=== PATIENT | male | born 1955 | race Caucasian/White ===

== ENCOUNTER 2017-01-20 09:59 | Inpatient (IN) | payer BC ==
[2017-01-20] VITALS (15 sets, daily range): BP systolic 108–177; BP diastolic 69–96
[~2017-01-20] VITALS: Ht 175.3 cm; Wt 77.7 kg
[2017-01-20 10:08] LABS: HEMOGLOBIN 16.3 g/dL (14.1-18.0); LYMPH # 1.7 K/mm3 (0.7-4.5); LYMPH % 12.2 % (10-50)
[2017-01-20] MEDS ORDERED: NOMEDS XX (10:11)
--- NOTE | 2017-01-20 10:24 | Emergency Room Report ---
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 Clinical Suspician of Infection? Mental Status: Sepsis Risk: Have you (or family members/close friends) recently traveled outside the [place]? If Yes, where/when: Have you had exposure to infectious disease within the past month? TB? Other? Specify: Source patient, RN notes reviewed, family Exam Limitations no limitations Comment Pt comes to the ED with complaints of substernal chest pain that started yesterday while trying [place] clean [place] fallen [place]. He worked really hard, developed chest pain, broke out with sweat and now comes to the ED with worsening CP. EKG looks like an acute Inferior RI. STEMI alert called immediately Cardiac Chest Pain Chest pain indicative of cardiac Yes Timing/Duration 24 hours Severity/Quality severe Location substernal Chest Pain Radiation no radiation Activities at Onset strenuous activity History Medical History Surgical Hx Previous Surgery? Review of Systems All Other Systems Reviewed and Negative Constitutional see HPI Respiratory see HPI Cardiovascular see HPI Skin see HPI Physical Exam Vital Signs Vital Signs Date Time Temp Pulse Resp B/P Pulse O2 O2 Flow FiO2 Ox Delivery Rate 01/20 1000 97.7 93 18 177/96 98 General Appearance normal appearance, WD/WN, moderate distress (Chest pain ) Respiratory Status No: respiratory distress. Lung Sounds bilateral: normal breath sounds. 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 No Results/Orders Laboratory Tests 01/20/17 1005: Sodium Pending, Potassium Pending, Chloride Pending, Carbon Dioxide Pending, BUN Pending, Creatinine Pending, Estimated Creat Clear Pending, Estimated GFR (MDRD) Pending, Glucose Pending, Calcium Pending, Total Bilirubin Pending, AST Pending, ALT Pending, Alkaline Phosphatase Pending, Creatine Kinase Pending, CK-MB (CK-2) Rel Index Pending, CK and CKMB Interp Pending, Troponin I Pending, Total Protein Pending, Albumin Pending, Globulin Pending, Albumin/Globulin Ratio Pending, PT Pending, INR Pending, APTT Pending, WBC 14.0 H, RBC 5.44, Hgb 16.3, Hct 48.7, MCV 89.6, RDW 13.4, Plt Count 235, MPV 7.7, Gran % 81.3 H, Gran # 11.4 H, Lymphocytes % 12.2, Monocytes % 5.3, Eosinophils % 1.1, Basophils % 0.1, Lymphocytes # 1.7, Monocytes # 0.7, Eosinophils # 0.2, Basophils # 0.0, PUBS MCHC 33.4, MCH 29.9 Current Medication Orders Sig/Chencho Start time Last Medication Dose Route Stop Time Status Admin Aspirin 324 MG ONCE ONE 01/20 1015 DC 01/20 PO 01/20 1016 1006 Nitroglycerin 0.4 MG [id number] PRN 01/20 1015 AC 01/20 PO 1012 Sodium Chloride 10 ML PRN PRN 01/20 1015 AC IV 01/21 1003 Ticagrelor 180 MG ONCE ONE 01/20 1015 DC PO 01/20 1016 Ticagrelor 0 .STK-MED ONE 01/20 1015 DC PO Aspirin 0 .STK-MED ONE 01/20 1005 DC .ROUTE Nitroglycerin 0 .STK-MED ONE 01/20 1005 DC SL Sodium Chloride 1,000 ML .STK-MED ONE 01/20 1005 DC IV Orders Procedure Date/time Status LHC W/VENTRICLE 01/20 1013 Active ELECTROCARDIOGRAM REQUEST 01/20 1005 Active CHEST-PORTABLE 01/20 1005 Active IV SALINE LOCK 01/20 1005 Active PROTIME/PARTIAL PROTIME 01/20 1005 Active CBC WITH AUTO DIFF 01/20 1005 Complete CARDIAC ENZYMES 01/20 1005 Active CHEM 12 PROFILE 01/20 1005 Active Departure Departure Time of Disposition 1016 Disposition Still a Patient Clinical Impression Primary Impression: Acute ST elevation myocardial infarction (STEMI) Qualifiers: Involved coronary artery: other inferior wall coronary artery Qualified Code: I21.19 - ST elevation (STEMI) myocardial infarction involving other coronary artery of inferior wall Condition STABLE Referrals Sonido Haddad MD Additional Instructions STEMI alert called and the shrimp pond laborer team are on their way in...Dr. Haddad has been sent the EKG Discharge Counseling Counseled pt/family regarding diagnosis, test results, follow up needs ED Critical Care Critical Care Yes Time spent 30-74 min Vital system(s) involved: Circulatory Failure I was present at bedside for Coordinating pt's care, Interpreting EKGs/Strips , During my initial exam, Reviewing lab results, Discussing pt condition, For re -examinations If Critical Care minutes are documented, the time involved in the performance of seperately reportable procedures was not counted toward critical care time documented. I directly delivered medical care to this critically ill and/or injured patient. Timely evaluation and treatment was necessary to address the significant organ system(s) dysfunction present in this patient. at 1029
--- NOTE | 2017-01-20 10:24 | Emergency Room Report ---
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 Clinical Suspician of Infection? Mental Status: Sepsis Risk: Have you (or family members/close friends) recently traveled outside the [place]? If Yes, where/when: Have you had exposure to infectious disease within the past month? TB? Other? Specify: Source patient, RN notes reviewed, family Exam Limitations no limitations Comment Pt comes to the ED with complaints of substernal chest pain that started yesterday while trying to clean a fallen tree [place] a fence [place] his [place]. He worked really hard, developed chest pain, broke out with sweat and now comes to the ED with worsening CP. EKG looks like an acute Inferior PA. STEMI alert called immediately Cardiac Chest Pain Chest pain indicative of cardiac Yes Timing/Duration 24 hours Severity/Quality severe Location substernal Chest Pain Radiation no radiation Activities at Onset strenuous activity History Medical History Surgical Hx Previous Surgery? Review of Systems All Other Systems Reviewed and Negative Constitutional see HPI Respiratory see HPI Cardiovascular see HPI Skin see HPI Physical Exam Vital Signs Vital Signs Date Time Temp Pulse Resp B/P Pulse O2 O2 Flow FiO2 Ox Delivery Rate 01/20 1000 97.7 93 18 177/96 98 General Appearance normal appearance, WD/WN, moderate distress (Chest pain ) Respiratory Status No: respiratory distress. Lung Sounds bilateral: normal breath sounds. 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 No Results/Orders Laboratory Tests 01/20/17 1005: Sodium Pending, Potassium Pending, Chloride Pending, Carbon Dioxide Pending, BUN Pending, Creatinine Pending, Estimated Creat Clear Pending, Estimated GFR (MDRD) Pending, Glucose Pending, Calcium Pending, Total Bilirubin Pending, AST Pending, ALT Pending, Alkaline Phosphatase Pending, Creatine Kinase Pending, CK-MB (CK-2) Rel Index Pending, CK and CKMB Interp Pending, Troponin I Pending, Total Protein Pending, Albumin Pending, Globulin Pending, Albumin/Globulin Ratio Pending, PT Pending, INR Pending, APTT Pending, WBC 14.0 H, RBC 5.44, Hgb 16.3, Hct 48.7, MCV 89.6, RDW 13.4, Plt Count 235, MPV 7.7, Gran % 81.3 H, Gran # 11.4 H, Lymphocytes % 12.2, Monocytes % 5.3, Eosinophils % 1.1, Basophils % 0.1, Lymphocytes # 1.7, Monocytes # 0.7, Eosinophils # 0.2, Basophils # 0.0, PUBS MCHC 33.4, MCH 29.9 Current Medication Orders Sig/Chencho Start time Last Medication Dose Route Stop Time Status Admin Aspirin 324 MG ONCE ONE 01/20 1015 DC 01/20 PO 01/20 1016 1006 Nitroglycerin 0.4 MG [id number] PRN 01/20 1015 AC 01/20 PO 1012 Sodium Chloride 10 ML PRN PRN 01/20 1015 AC IV 01/21 1003 Ticagrelor 180 MG ONCE ONE 01/20 1015 DC PO 01/20 1016 Ticagrelor 0 .STK-MED ONE 01/20 1015 DC PO Aspirin 0 .STK-MED ONE 01/20 1005 DC .ROUTE Nitroglycerin 0 .STK-MED ONE 01/20 1005 DC SL Sodium Chloride 1,000 ML .STK-MED ONE 01/20 1005 DC IV Orders Procedure Date/time Status LHC W/VENTRICLE 01/20 1013 Active ELECTROCARDIOGRAM REQUEST 01/20 1005 Active CHEST-PORTABLE 01/20 1005 Active IV SALINE LOCK 01/20 1005 Active PROTIME/PARTIAL PROTIME 01/20 1005 Active CBC WITH AUTO DIFF 01/20 1005 Complete CARDIAC ENZYMES 01/20 1005 Active CHEM 12 PROFILE 01/20 1005 Active Departure Departure Time of Disposition 1016 Disposition Still a Patient Clinical Impression Primary Impression: Acute ST elevation myocardial infarction (STEMI) Qualifiers: Involved coronary artery: other inferior wall coronary artery Qualified Code: I21.19 - ST elevation (STEMI) myocardial infarction involving other coronary artery of inferior wall Condition STABLE Referrals Sonido Haddad MD Additional Instructions STEMI alert called and the flue dust laborer team are on their way in...Dr. Haddad has been sent the EKG Discharge Counseling Counseled pt/family regarding diagnosis, test results, follow up needs ED Critical Care Critical Care Yes Time spent 30-74 min Vital system(s) involved: Circulatory Failure I was present at bedside for Coordinating pt's care, Interpreting EKGs/Strips , During my initial exam, Reviewing lab results, Discussing pt condition, For re -examinations If Critical Care minutes are documented, the time involved in the performance of seperately reportable procedures was not counted toward critical care time documented. I directly delivered medical care to this critically ill and/or injured patient. Timely evaluation and treatment was necessary to address the significant organ system(s) dysfunction present in this patient. at 1028
--- NOTE | 2017-01-20 11:37 | RADIOLOGY REPORT PS360 ---
CARDIAC CATHETERIZATION DATE OF CATHETERIZATION:01/20/2017 11:21 AM PROCEDURES: 1. Left heart catheterization 2. Selective coronary angiogram 3. Left ventriculogram 4. Drug-eluting stent deployment to the proximal mid right coronary artery INDICATION FOR TEST: 1. Acute inferior ST elevation myocardial infarction 2. Coronary artery disease Informed consent was obtained prior to the procedure. COMPLICATIONS: None ESTIMATED BLOOD LOSS: Less than 10 ml. TECHNIQUE: One percent lidocaine was used to anesthetize the right anterior aspect of the right wrist. The right radial artery was accessed via the central technique and a 6 American hydrophilic sheath was placed in the right radial artery. 8000 units of heparin along with verapamil and nitroglycerin were administered intra-arterially. An [employer] left 3.5 guide catheter was placed in the ascending aorta. When attached to the pressure transducer the catheter was in the left ventricle. Left ventriculogram and left heart catheterization was then subsequently performed using this catheter. Following this the guide catheter was pulled back and used to intubate the left main artery. Angiography was performed. Following this the catheter was then placed into the right coronary artery and angiography followed. An ACT was measured out of range. A choice PT wire was pushed through the acute occlusion. Patient was actively having burning chest pain and pressure with severe discomfort. A 2 mm x 15 mm balloon was taken at 20 jeromy to predilate the stenosis. Following this a 2.5 x 22 mm resolute stent was deployed at 20 jeromy in the proximal right coronary artery. 800 mcg of intracoronary nitroglycerin was administered there by restoring LITZY-3 flow and patient had complete alleviation of his chest pain. Following this a 3 mm x 30 mm resolute stent was deployed at 20 jeromy in the mid right coronary artery overlapping the first stent. This same balloon was brought back and used to post dilate the 2.5 mm stent and taken to 22 jeromy creating an intraluminal diameter in excess of 3.55 mm. An additional 800 mcg of intracoronary nitroglycerin was given. LITZY 0 flow had improved from the beginning of the case up to LITZY-3 flow at the end of the case. Patient immediately described complete alleviation of all chest pain and indicated he felt significantly better and actually normal. No residual chest pain was present after revascularization which was a significant improvement from his severe chest pain and mild diaphoresis prior to the procedure. Following this the apparatus was removed good hemostasis was achieved using TR band in patient was transferred to the postop holding area in stable condition ANGIOGRAPHIC RESULTS: 1. The left main artery has an ostial 20% stenosis 2. The left anterior descending artery immediately after the first diagonal artery yet proximal to the first septal vp treasurer the LAD has a hazy 70% stenosis followed by sequential 70% stenoses distal to the first septal vp treasurer. Distally there are 40% stenoses. The first diagonal artery is a medium to large vessel and has a proximal 50% stenosis 3. The circumflex artery is a codominant vessel and has a proximal 90% stenosis followed by 70% mid vessel stenoses in between the first and second obtuse marginal artery. The first obtuse marginal artery is a small 1.5 mm vessel and has a proximal 90% stenosis 4. The right coronary artery is a codominant vessel and proximally occluded prior to the intervention. Following the intervention the vessel is widely patent with LITZY-3 flow distally. 5. The VELAZQUEZ ventriculogram reveals normal ejection fraction 65% 6. The left ventricular end-diastolic pressure 10 mmHg IMPRESSION: 1. Acute inferior myocardial infarction as described above 2. Successful stenting of the proximal to mid codominant right coronary artery critical 100% occlusion acutely infarcted reduced to 0% with 2 drug-eluting stents as described above with mandaen of flow back to LITZY-3 3. Persistent severe proximal LAD disease 4. Persistent severe proximal circumflex artery disease 5. Normal ejection fraction 6. Normal left ventricular end-diastolic pressure PLAN: 1. Brilinta and aspirin 2. Lipitor 80 mg daily 3. Start with low dose josy inhibitors and carvedilol and uptitrate as tolerated 4. Absolute tobacco cessation 5. Next week patient will be brought back to the [facility] and will undergo stenting of the proximal LAD and circumflex artery. 6. Monitor on telemetry.
--- NOTE | 2017-01-20 11:37 | RADIOLOGY REPORT PS360 ---
CARDIAC CATHETERIZATION DATE OF CATHETERIZATION:01/20/2017 11:21 AM PROCEDURES: 1. Left heart catheterization 2. Selective coronary angiogram 3. Left ventriculogram 4. Drug-eluting stent deployment to the proximal mid right coronary artery INDICATION FOR TEST: 1. Acute inferior ST elevation myocardial infarction 2. Coronary artery disease Informed consent was obtained prior to the procedure. COMPLICATIONS: None ESTIMATED BLOOD LOSS: Less than 10 ml. TECHNIQUE: One percent lidocaine was used to anesthetize the right anterior aspect of the right wrist. The right radial artery was accessed via the central technique and a 6 Taiwanese hydrophilic sheath was placed in the right radial artery. 8000 units of heparin along with verapamil and nitroglycerin were administered intra-arterially. An [employer] left 3.5 guide catheter was placed in the ascending aorta. When attached to the pressure transducer the catheter was in the left ventricle. Left ventriculogram and left heart catheterization was then subsequently performed using this catheter. Following this the guide catheter was pulled back and used to intubate the left main artery. Angiography was performed. Following this the catheter was then placed into the right coronary artery and angiography followed. An ACT was measured out of range. A choice PT wire was pushed through the acute occlusion. Patient was actively having burning chest pain and pressure with severe discomfort. A 2 mm x 15 mm balloon was taken at 20 jeromy to predilate the stenosis. Following this a 2.5 x 22 mm resolute stent was deployed at 20 jeromy in the proximal right coronary artery. 800 mcg of intracoronary nitroglycerin was administered there by restoring LITZY-3 flow and patient had complete alleviation of his chest pain. Following this a 3 mm x 30 mm resolute stent was deployed at 20 jeromy in the mid right coronary artery overlapping the first stent. This same balloon was brought back and used to post dilate the 2.5 mm stent and taken to 22 jeromy creating an intraluminal diameter in excess of 3.55 mm. An additional 800 mcg of intracoronary nitroglycerin was given. LITZY 0 flow had improved from the beginning of the case up to LITZY-3 flow at the end of the case. Patient immediately described complete alleviation of all chest pain and indicated he felt significantly better and actually normal. No residual chest pain was present after revascularization which was a significant improvement from his severe chest pain and mild diaphoresis prior to the procedure. Following this the apparatus was removed good hemostasis was achieved using TR band in patient was transferred to the postop holding area in stable condition ANGIOGRAPHIC RESULTS: 1. The left main artery has an ostial 20% stenosis 2. The left anterior descending artery immediately after the first diagonal artery yet proximal to the first septal administrative executive the LAD has a hazy 70% stenosis followed by sequential 70% stenoses distal to the first septal administrative executive. Distally there are 40% stenoses. The first diagonal artery is a medium to large vessel and has a proximal 50% stenosis 3. The circumflex artery is a codominant vessel and has a proximal 90% stenosis followed by 70% mid vessel stenoses in between the first and second obtuse marginal artery. The first obtuse marginal artery is a small 1.5 mm vessel and has a proximal 90% stenosis 4. The right coronary artery is a codominant vessel and proximally occluded prior to the intervention. Following the intervention the vessel is widely patent with LITZY-3 flow distally. 5. The VELAZQUEZ ventriculogram reveals normal ejection fraction 65% 6. The left ventricular end-diastolic pressure 10 mmHg IMPRESSION: 1. Acute inferior myocardial infarction as described above 2. Successful stenting of the proximal to mid codominant right coronary artery critical 100% occlusion acutely infarcted reduced to 0% with 2 drug-eluting stents as described above with congregational of flow back to LITZY-3 3. Persistent severe proximal LAD disease 4. Persistent severe proximal circumflex artery disease 5. Normal ejection fraction 6. Normal left ventricular end-diastolic pressure PLAN: 1. Brilinta and aspirin 2. Lipitor 80 mg daily 3. Start with low dose josy inhibitors and carvedilol and uptitrate as tolerated 4. Absolute tobacco cessation 5. Next week patient will be brought back to the [facility] and will undergo stenting of the proximal LAD and circumflex artery. 6. Monitor on telemetry.
--- NOTE | 2017-01-20 11:44 | RADIOLOGY REPORT PS360 ---
CHEST-PORTABLE COMPARISON: None HISTORY: Chest pain TECHNIQUE: Portable semiupright chest FINDINGS: The lung mike are well expanded and appear clear of infiltrate. There are resuscitation pounds overlying the left heart border. There are monitor lines seen as well. Cardiac size is normal and the vascularity is normal. IMPRESSION: Nonacute chest findings
[2017-01-20] MEDS ORDERED: ALEVE220 MG PO (15:44)
--- NOTE | 2017-01-20 16:42 | HISTORY AND PHYSICAL REPORT ---
Demographics: Admit date: 01/20/17 Chief complaint: chest pain PRIMARY DIAGNOSIS: STEMI Allergies: Coded Allergies: No Known Allergies (01/20/17) History of present illness: History of present illness: 61-year-old male presented to the ER for chest pain. Patient states it started yesterday when he was [place] trees off the fence line. Patient states when the pain started he stopped working and try to get in the vehicle and become very dizzy headed and diaphoretic. Patient states he went home and took a shower and waited for the pain to ease. Patient states he suffered with the pain throughout the night and decided to come to the ER this a.m. to be evaluated. 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 Patient states he has not seen a doctor in 17 years. In house no medical problems that he knows of. Past medical history: Family HX Diabetes No CAD Yes Hypertension No Hyperlipidemia No Cancer No TB No Immunization HX DT/Tetanus Unknown Flu Refused Pneumonia Refuses TB Test in last year No General CAD? No Angina: No [place]: No Hypertension? No Hyperlipidemia? No CHF? No DVT? No PE? No COPD? No Asthma? No Anemia? No GERD? No Gastric ulcers? No GI Bleed? No Hernia? No Thyroid Problems? No Hypothyroidism? No CVA? No Seizures? No Diabetes? No Renal Insuffiency? No UTI? No Stones? No BPH? No GB Disease: No Nephritic Syndrome? No Asplenia? No Hepatitis? No Sickle Cell Disease? No Arthritis? Yes Migraines? No Cataracts? No Glaucoma? No MRSA? No HIV? No TB? No Anxiety? No Depression? No Cancer? Yes Site: SKIN More? No Past Surgical HX Previous Surgery?N Current home meds: Reported Medications Naproxen Sodium (Aleve) 220 MG PO PRN PRN SHOULDER No Home Medications (NO HOME MEDICATIONS) 1 EACH XX ONCE Social Hx: Smoking HX Tobacco Yes Type Cigarettes Packs/day < 1 PACK Are you/the child exposed to second-hand smoke: Yes Alcohol Alcohol: No Hx of Drug Use Drug Use? No Patien't marital status is Patient's support system is good Review of systems: Constitutional see HPI, weakness. Respiratory see HPI, shortness of breath. Cardiovascular see HPI, chest pain Gastrointestinal/Abdominal see HPI, nausea Genitourinary No: no symptoms reported. Musculoskeletal No: no symptoms reported. Neurological Yes: see HPI, weakness. Psychiatric No: no symptoms reported. Exam: Lab data for last 24 hours: Laboratory Tests 01/20/17 1107: POC Activ Clotting Time >400 *H 01/20/17 1005: Triglycerides 176, Cholesterol 251 H, LDL Cholesterol 169.8 H, VLDL Cholesterol 35.2, HDL Cholesterol 46.0 01/20/17 1005: Sodium 141, Potassium 3.6, Chloride 102, Carbon Dioxide 29, BUN 15, Creatinine 1.0, Estimated Creat Clear 85, Estimated GFR (MDRD) 76, Glucose 139 H, Calcium 8.9, Total Bilirubin 0.6, AST 320 *H, ALT 59, Alkaline Phosphatase 74, Creatine Kinase 2710 H, CK-MB (CK-2) Rel Index 17.1 *H, CK and CKMB Interp 464.3 *H, Troponin I 34.88 H, Total Protein 7.7, Albumin 4.1, Globulin 3.6 H, Albumin/ Globulin Ratio 1.1, PT 10.7, INR 1.00, APTT 28.8, WBC 14.0 H, RBC 5.44, Hgb 16.3, Hct 48.7, MCV 89.6, RDW 13.4, Plt Count 235, MPV 7.7, Gran % 81.3 H, Gran # 11.4 H, Lymphocytes % 12.2, Monocytes % 5.3, Eosinophils % 1.1, Basophils % 0.1, Lymphocytes # 1.7, Monocytes # 0.7, Eosinophils # 0.2, Basophils # 0.0, PUBS MCHC 33.4, MCH 29.9 Admission vital signs: 1ST Vital Signs Result Date Time Pulse Ox 98 01/20 1000 B/P 177/96 01/20 1000 Temp 97.7 01/20 1000 Pulse 93 01/20 1000 Resp 18 01/20 1000 O2 Flow Rate 2 01/20 1031 O2 Delivery ROOM AIR 01/20 1206 Exam General appearance: normal appearance, alert, active, no acute distress Eyes: normal exam, PERRLA ENT: normal exam Neck: normal inspection, full range of motion Cardiovascular: normal exam, regular rate & rhythm Respiratory: normal exam, aerating well ABD: normal exam, soft Genitourinary: normal voiding & quantity Extremities: normal exam, moves all, pressure device to RIGHT wrist Musculoskeletal: normal exam Skin: normal exam, intact, warm Neuro: normal exam, alert, intact, oriented Plan: Problem List 1. Acute ST elevation myocardial infarction (STEMI) Plan: Discussed patient with Dr. velasquez and Dr. Haddad. Arti will be in later to see patient at [id number]
[2017-01-21] VITALS (10 sets, daily range): BP systolic 92–132; BP diastolic 54–87
[2017-01-21 07:48] LABS: LYMPH # 2.7 K/mm3 (0.7-4.5); LYMPH % 25.8 % (10-50)
[2017-01-21 07:59] LABS: HEMOGLOBIN 14.6 g/dL (14.1-18.0)
--- NOTE | 2017-01-21 12:04 | ACUTE CARE PROGRESS NOTE (QUA) ---
Progress Notes Subjective Date 01/21/17 Time 1200 Patient/family reports: feeling better, no complaints Nursing reports: alert Objective Findings Last VS-Temp:98.3 B/P:108/73 Pulse:74 Resp:18 SaO2:90 ROOM AIR Last weight lbs:171 oz:4 K.678 Method:Bed Scales Exam General appearance: normal appearance, alert, active, no acute distress Eyes: normal exam ENT: normal exam Neck: normal inspection, full range of motion Cardiovascular: normal exam, regular rate & rhythm Respiratory: normal exam, clear to auscultation, good air movement, no respiratory distress ABD: normal exam, soft Genitourinary: normal voiding & quantity Extremities: normal exam, normal capillary refill Musculoskeletal: normal exam Skin: normal exam, intact, warm Neuro: normal exam, alert, intact, oriented Reviewed: allergies, medications, vital signs, lab results, consult note Assessment/Plan Problem List 1. 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 tach last night but was asymptomatic we'll monitor today if no more arrhythmias and okayed by cardiology may DC home tomorrow. Discussed patient with Dr. Chi he will be in later today to see patient at 1204
--- NOTE | 2017-01-21 12:53 | PHARMACY CLINIC NOTE ---
Patient Demographics Patient Demographics Admission date: 01/20/17 Date: 01/21/17 Time: 1252 Allergies Coded Allergies: No Known Allergies (01/20/17) HEIGHT- FT: 5 IN: 9.00 K.678 VTE General Information Labs: Laboratory Tests 01/21 0615 Hematology Hgb (14.1 - 18.0 g/dL) 14.6 Hct (42.0 - 52.0 %) 43.2 Plt Count (142 - 424 K/mm3) 217 Disclaimer The following section includes nursing documentation that has been pulled in for pharmacy review. Patient's VTE score: 2 Patient's VTE Risk: VERY LOW RISK Clinical trial participant? No VTE prophylaxis [id number] VTE prophylaxis ordered? Yes Type of prophylaxis/treatment: WILLA at 1461
[2017-01-22 00:32] VITALS: BP 134/86
[2017-01-22 03:58] VITALS: BP 111/73
[2017-01-22 06:42] LABS: HEMOGLOBIN 15.2 g/dL (14.1-18.0); LYMPH # 2.5 K/mm3 (0.7-4.5); LYMPH % 23.7 % (10-50)
[2017-01-22 08:25] VITALS: BP 125/63
[2017-01-22] MEDS ORDERED: ASPIRIN 81MG TA81 MG PO (09:05)
[2017-01-22] MEDS ORDERED: NITROGLYCERIN0.4 MG SL (09:05)
[2017-01-22] MEDS ORDERED: LIPITOR40 M1 PO (09:05)
[2017-01-22] MEDS ORDERED: BRILINTA90 MG PO (09:05)
[2017-01-22] MEDS ORDERED: SUNMARK NI21 MG/24 H TD (09:05)
--- NOTE | 2017-01-22 09:09 | ACUTE CARE PROGRESS NOTE (QUA) ---
Progress Notes Subjective Date 01/22/17 Time 0907 Patient/family reports: feeling better, no complaints Nursing reports: alert Objective Findings Last VS-Temp:98.0 B/P:125/63 Pulse:76 Resp:18 SaO2:93 ROOM AIR Last weight lbs:171 oz:4 K.678 Method:Bed Scales Exam General appearance: normal appearance, alert, active, no acute distress Eyes: normal exam ENT: normal exam Neck: normal inspection, full range of motion Cardiovascular: normal exam, regular rate & rhythm, normal peripheral pulses Respiratory: normal exam, clear to auscultation, good air movement ABD: normal exam, soft Genitourinary: normal voiding & quantity Extremities: normal exam, moves all Musculoskeletal: normal exam Skin: normal exam, normal color, warm Neuro: normal exam, alert, oriented Reviewed: allergies, medications, vital signs, lab results, consult note Assessment/Plan Problem List 1. Acute ST elevation myocardial infarction (STEMI) Qualifiers: Involved coronary artery: other inferior wall coronary artery Qualified Code: I21.19 - ST elevation (STEMI) myocardial infarction involving other coronary artery of inferior wall Patient condition Stable Plan: initiate discharge plan This inpt stay is expected to cross 2 MNs from start of care Yes Comments: Rounded with jaun at 0909
--- NOTE | 2017-01-22 09:13 | DISCHARGE SUMMARY STANDARD ---
Demographics Admit date: 01/20/17 Discharge date: 01/22/17 History of present illness History of present illness 61-year-old male presented to the ER for chest pain. Patient states it started yesterday when he was [place] trees off the fence line. Patient states when the pain started he stopped working and try to get in the vehicle and become very dizzy headed and diaphoretic. Patient states he went home and took a shower and waited for the pain to ease. Patient states he suffered with the pain throughout the night and decided to come to the ER this a.m. to be evaluated. 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 Patient states he has not seen a doctor in 17 years. In house no medical problems that he knows of. Hospital Course Hospital Course: STEMI-2 cardiac stents, close follow-up needs additional stents. Cardiology okay to discharge today. Discharge home on aspirin, Burlenta, and cholesterol med. Patient denies any further chest pain since stents. No work until next Sunday and cleared by cardiology. Discharge diagnoses Problem List 1. Acute ST elevation myocardial infarction (STEMI) Medications Medications: Discharge meds are as noted. Follow up Follow up in office in: 8 DAYS with: FRANCE CONKLIN Comment: Rounded with Arti. Follow-up in the office on Sunday after Boo's appointment. at 0913
--- NOTE | 2017-01-22 09:13 | DISCHARGE SUMMARY STANDARD ---
Demographics Admit date: 01/20/17 Discharge date: 01/22/17 History of present illness History of present illness 61-year-old male presented to the ER for chest pain. Patient states it started yesterday when he was [place] trees off the fence line. Patient states when the pain started he stopped working and try to get in the vehicle and become very dizzy headed and diaphoretic. Patient states he went home and took a shower and waited for the pain to ease. Patient states he suffered with the pain throughout the night and decided to come to the ER this a.m. to be evaluated. 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 Patient states he has not seen a doctor in 17 years. In house no medical problems that he knows of. Hospital Course Hospital Course: STEMI-2 cardiac stents, close follow-up needs additional stents. Cardiology okay to discharge today. Discharge home on aspirin, Burlenta, and cholesterol med. Patient denies any further chest pain since stents. No work until next Sunday and cleared by cardiology. Discharge diagnoses Problem List 1. Acute ST elevation myocardial infarction (STEMI) Medications Medications: Discharge meds are as noted. Follow up Follow up in office in: 8 DAYS with: FRANCE CONKLIN Comment: Rounded with Arti. Follow-up in the office on Sunday after Boo's appointment. at 0913
[2017-01-22 09:45] VITALS: BP 125/63
--- NOTE | 2017-01-22 10:22 | ACUTE CARE PROGRESS NOTE (QUA) ---
Progress Notes Subjective Date 01/22/17 Time 0800 Note 61 yo WM in bed in NAD. No complaints of chest pain. Wants to go home. Discussed the need for tobacco cessation. He is "willing to try and quit." Objective Findings Last VS-Temp:98.0 B/P:125/63 Pulse:76 Resp:18 SaO2:93 ROOM AIR Last weight lbs:171 oz:4 K.678 Method:Bed Scales Exam General appearance: alert, awake, no acute distress Cardiovascular: regular rate & rhythm Respiratory: diminished breath sounds Extremities: moves all, no peripheral edema Neuro: alert, intact, oriented Reviewed: medications, vital signs, lab results Assessment/Plan Problem List 1. Acute ST elevation myocardial infarction (STEMI) Assessment/Plan: NERISSA X 2 to RCA. Still with LAD and circumflex disease which will need intervention in the near future. On DAPT. Qualifiers: Involved coronary artery: other inferior wall coronary artery Qualified Code: I21.19 - ST elevation (STEMI) myocardial infarction involving other coronary artery of inferior wall Patient condition Stable Plan: Ok to discharge home. Continue DAPT. Follow up next week to schedule intervention of LAD/Cx disease. Off work til follow up. Continue statin. This inpt stay is expected to cross 2 MNs from start of care Yes at 1023
== END 2017-01-22 09:58 | disposition home or self-care (01) | DRG 247 ==
LOC: ER 09:59 → 2ND 12:30 → ER 13:50 → 2ND 01-22 09:58
PROVIDERS: Emergency Medicine; General Practice; Internal Medicine
PROC: 027034Z Dilation of Coronary Artery, One Artery with Drug-eluting Intraluminal Device, Percutaneous Approach (ICD-10-PCS; principal; 2017-01-20 10:44)
PROC: B2111ZZ Fluoroscopy of Multiple Coronary Arteries using Low Osmolar Contrast (ICD-10-PCS; principal; 2017-01-20 10:44)
PROC: B2151ZZ Fluoroscopy of Left Heart using Low Osmolar Contrast (ICD-10-PCS; principal; 2017-01-20 10:44)
PROC: 4A023N7 Measurement of Cardiac Sampling and Pressure, Left Heart, Percutaneous Approach (ICD-10-PCS; principal; 2017-01-20 10:44)
DX: I21.11 ST elevation (STEMI) myocardial infarction involving right coronary artery (principal); I25.10 Atherosclerotic heart disease of native coronary artery without angina pectoris; Z72.0 Tobacco use
CPT/HCPCS: C1725; C1769; C1876; C1894; J1644; Q9967

== ENCOUNTER → 2017-07-11 | Outpatient (CLI) | payer BC ==
[~2017-07-11] MED LIST: ALEVE220 MG PO; ASPIRIN 81MG TA81 MG PO; BRILINTA90 MG PO; LIPITOR40 M1 PO; NITROGLYCERIN0.4 MG SL; NOMEDS XX; SUNMARK NI21 MG/24 H TD
--- NOTE | 2017-07-12 14:09 | RADIOLOGY REPORT PS360 ---
History and Indications: Coronary disease, chest pain Procedure: Patient received a 0.4 mg, resting heart rate was 50 bpm, resting blood pressure 120/79, with Lexiscan maximum heart rate achieved was 96 bpm which is less than 85% of the maximum predicted heart rate and a blood pressure was 152/86. The scan patient complained of shortness of breath. Electrocardiogram: Resting electrocardiogram showed sinus bradycardia, with Lexiscan less than 1.[address] segment depression noted from the baseline EKG. The EKG portion of the Lexiscan Myoview is nondiagnostic. Cardiac stress and resting SPECT images: Cardiac stress and resting SPECT images were obtained using Tc 99 Myoview 10.7 mCi at rest and 31.5 mCi at stress, gated SPECT further analysis of segmental wall motion and calculation of ejection fraction also done. Cardiac stress and rest SPECT images show a fixed defect in the inferior wall with normal contractility in the gated SPECT is likely secondary to soft tissue attenuation, no reversible ischemia seen. There are ejection fraction 50% with no obvious regional wall motion abnormality, right ventricle is mildly enlarged with normal contractility. Conclusion: 1. The EKG portion of the Lexiscan Myoview is nondiagnostic. 2. No obvious scintigraphic evidence of reversible ischemia seen, without ejection fraction 50% with no obvious regional wall motion abnormality, right ventricle is mildly enlarged with normal contractility.
== END ==
LOC: RAD 06:35
DX: I20.8 Other forms of angina pectoris (principal); I25.10 Atherosclerotic heart disease of native coronary artery without angina pectoris; I10 Essential (primary) hypertension; E78.5 Hyperlipidemia, unspecified
CPT/HCPCS: A9502; J2785